=== PATIENT | male | born 1945 | race Caucasian/White ===

== ENCOUNTER 2020-10-08 12:53 | Observation (INO) | payer MEDICARE, OTHER ==
[~2020-10-08] VITALS: Ht 182.9 cm; Wt 97.5 kg
[~2020-10-08 12:53] MED LIST: BENZTROPINE MESY1 MG PO; FLUDROCORTISON0.1 MG PO; PRAVACHOL40 MG PO; RISPERDAL2 MG PO; VITAMIN B-121000 MCG PO; ZANTAC150 MG PO; ZOFRAN4 MG PO; ZOLOFT100 MG PO
[2020-10-08 14:12] LABS: HEMOGLOBIN 13.8 gm/dl (14.0-17.5); RED BLOOD COUNT 4.55 M/UL (4.20-5.50); WHITE BLOOD COUNT 5.9 K/UL (4.5-11.0)
[2020-10-08 14:38] LABS: BUN/CREATININE RATIO 10 (0-10)
[2020-10-08] MEDS ORDERED: CRESTOR5 MG PO (16:06)
[2020-10-08] MEDS ORDERED: ACID CONTROLLER20 MG PO (16:07)
[2020-10-08] MEDS ORDERED: ANTIVERT 12.512.5 MG PO (16:07)
[2020-10-08] MEDS ORDERED: DAILY VALUE1 EACH PO (16:08)
[2020-10-08] MEDS ORDERED: VITAMIN D 40400 UNIT PO (16:08)
[2020-10-08] MEDS ORDERED: ASPIRIN EC81 MG PO (16:08)
[2020-10-09 01:59] LABS: HEMOGLOBIN 14.2 gm/dl (14.0-17.5); RED BLOOD COUNT 4.7 M/UL (4.20-5.50)
[2020-10-09 02:00] LABS: WHITE BLOOD COUNT 7.7 K/UL (4.5-11.0)
[2020-10-09 02:36] LABS: BUN/CREATININE RATIO 13 (0-10)
--- NOTE | 2020-10-10 17:37 | NUR ---
PATIENT ONLY HAS 100 ML OF OUTPUT FOR 7A-7P SHIFT TODAY. BLADDER SCANNED PATIENT, AND ASSESSED VIA PALPATION. PATIENT'S BLADDER SCAN RESULTS ARE ONLY 150 ML. WILL CONTINUE TO MONITOR.
[2020-10-11] MEDS ORDERED: CARBIDOPA-LEVO1 EA14 PO (10:57)
== END 2020-10-11 15:29 ==
LOC: ER1 12:53 → CDU 14:57 → M/S 23:09
PROVIDERS: Physician Assistant; ADMIT Internal Medicine
DX: R27.0 Ataxia, unspecified (principal); R79.89 Other specified abnormal findings of blood chemistry; G90.3 Multi-system degeneration of the autonomic nervous system; E78.5 Hyperlipidemia, unspecified; K21.9 Gastro-esophageal reflux disease without esophagitis; F32.9 Major depressive disorder, single episode, unspecified; Z79.82 Long term (current) use of aspirin; Z79.899 Other long term (current) drug therapy; Z20.822 Contact with and (suspected) exposure to COVID-19
CPT/HCPCS: ECHO; 70450; 70551; 71045; 80048; 80053; 82550; 82553; 83874; 84484; 85025; 93005; 93306; 93880; 97110-GP-CQ; 97116-GP-CQ; 97162; 97166; 97530-GP-CQ; 99285; G0378; U0002